=== PATIENT | female | born 1990 | race African-American/Black ===

== ENCOUNTER 2021-01-09 19:25 | Emergency (ER) | payer MEDICAID ==
[~2021-01-09] VITALS: Ht 162.6 cm; Wt 68.0 kg
[2021-01-09] MEDS ORDERED: TETANUS, DIPHTHERIA, PERTUSSIS VAC/PF 0.5ML (>7YR OLD) IM ONE (20:15)
[2021-01-09 23:00] VITALS: BP 125/90
== END 2021-01-10 00:11 | disposition home or self-care (01) ==
LOC: ER 19:25
DX: Z00.00 Encounter for general adult medical examination without abnormal findings (principal); S81.812A Laceration without foreign body, left lower leg, initial encounter; J45.909 Unspecified asthma, uncomplicated; V03.90XA Pedestrian on foot injured in collision with car, pick-up truck or van, unspecified whether traffic or nontraffic accident, initial encounter; Y93.9 Activity, unspecified; Y92.9 Unspecified place or not applicable
CPT/HCPCS: 12002; 81025; 99283